=== PATIENT | male | born 1980 | race African-American/Black ===

== ENCOUNTER → 2016-08-30 | Outpatient (CLI) | payer SELFPAY ==
[2016-08-30 15:28] LABS: CHLORIDE,CL 105 mmol/L (98-110); SODIUM,NA 138 mmol/L (136-146)
== END ==
LOC: MW.CHFP 14:56
PROVIDERS: ATTEND Physician Assistant
DX: R73.9 Hyperglycemia, unspecified (principal)
CPT/HCPCS: 36415; 80048; 83036